=== PATIENT | male | born 1960 | race Caucasian/White ===

== ENCOUNTER 2020-12-14 07:51 | Outpatient (CLI) | payer OTHER, SELFPAY ==
[2020-12-14 08:17] LABS: Basophils Percent Auto 1.4 % (0.0-1.0); Eosinophils Absolute Auto 0.18 K/mm3 (0.02-0.50); Eosinophils Percent Auto 2.6 % (1.0-6.0); Hematocrit 59.7 % (40.0-54.0); Hemoglobin 20.9 g/dL (14.0-18.0); Immature Granulocyte Absolute 0.01 K/mm3 (0.00-0.00); Immature Granulocyte Percent A 0.1 % (0.0-0.0); Lymphocytes Absolute Auto 1.95 K/mm3 (1.10-4.50); Lymphocytes Percent Auto 28.1 % (18.0-42.0); Mean Corpuscular Hemoglobin 34.4 pg (27.0-31.0); Mean Corpuscular Volume 98.2 fL (78.0-102.0); Mean Platelet Volume 8.9 fl (8.7-11.0); Monocytes Absolute Auto 0.88 K/mm3 (0.10-0.90); Monocytes Percent Auto 12.7 % (2.0-11.0); Neutrophils Absolute Auto 3.8 K/mm3 (1.7-7.2); Neutrophils Percent Auto 55.1 % (50.0-70.0); Platelet Count Result 185 K/mm3 (150-420); Red Blood Count 6.08 M/mm3 (4.70-6.10); Red Cell Distribution Width 13.2 % (11.6-14.4); White Blood Count 6.9 K/mm3 (4.8-10.8)
[2020-12-14 08:37] LABS: Alanine Aminotransferase 45 U/L (16-63); Albumin Level 3.8 g/dL (3.4-5.0); Alkaline Phosphatase 71 U/L (46-116); Anion Gap 8 mmol/L (8-16); Aspartate Amino Transferase 28 U/L (15-37); Bilirubin,Total 1.6 mg/dL (0.00-1.00); Blood Urea Nitrogen 10 mg/dL (7-18); Calcium 9.5 mg/dL (8.5-10.1); Carbon Dioxide 32 mmol/L (21-32); Chloride 100 mmol/L (98-108); Cholesterol 208 mg/dL (0-200); Estimated Glomerular Filt Rate > 60; Glucose 119 mg/dL (70-99); HDL Direct 53 mg/dL (40-60); LDL Cholesterol Calculated 127 mg/dL (<130); Osmolality Calculated 290 mOsm/kg (285-295); Potassium 4.2 mmol/L (3.5-5.1); Sodium 140 mmol/L (136-145); Total Protein 7.5 g/dL (6.4-8.2); Triglycerides 142 mg/dL (0-150)
[2020-12-14 09:27] LABS: Thyroid Stimulating Hormone Reflex 3.24 u/IU/mL (0.36-3.74)
== END 2020-12-14 07:52 | disposition home or self-care (01) ==
PROVIDERS: PCP Family Medicine; Visit Provider Family Medicine
DX: I10 Essential (primary) hypertension (principal)
CPT/HCPCS: 36415; 80053; 80061; 84443; 85025

== ENCOUNTER 2022-09-30 08:39 | Outpatient (CLI) | payer OTHER, SELFPAY ==
[2022-09-30 08:50] LABS: Hematocrit 64.6 % (40.0-54.0); Hemoglobin 21.5 g/dL (14.0-18.0); Mean Corpuscular HGB Conc 33.3 g/dL (32.0-36.0); Mean Corpuscular Hemoglobin 31.3 pg (27.0-31.0); Mean Corpuscular Volume 94.2 fL (78.0-102.0); Mean Platelet Volume 8.7 fl (8.7-11.0); Platelet Count Result 177 K/mm3 (150-420); Red Blood Count 6.86 M/mm3 (4.70-6.10); White Blood Count 5.6 K/mm3 (4.8-10.8)
[2022-09-30 09:11] LABS: Alanine Aminotransferase 39 U/L (16-63); Albumin Level 3.7 g/dL (3.4-5.0); Alkaline Phosphatase 90 U/L (46-116); Anion Gap 7 mmol/L (8-16); Aspartate Amino Transferase 28 U/L (15-37); Bilirubin,Total 2.1 mg/dL (0.00-1.00); Blood Urea Nitrogen 10 mg/dL (7-18); Calcium 9.5 mg/dL (8.5-10.1); Carbon Dioxide 33 mmol/L (21-32); Chloride 101 mmol/L (98-108); Cholesterol 196 mg/dL (0-200); Estimated Glomerular Filt Rate 57; Glucose 136 mg/dL (70-99); HDL Direct 49 mg/dL (40-60); LDL Cholesterol Calculated 113 mg/dL (<130); Osmolality Calculated 293 mOsm/kg (285-295); Potassium 3.8 mmol/L (3.5-5.1); Sodium 141 mmol/L (136-145); Total Protein 7.8 g/dL (6.4-8.2); Triglycerides 170 mg/dL (0-150)
== END 2022-09-30 08:40 | disposition home or self-care (01) ==
LOC: CHSLAB 08:41
PROVIDERS: PCP Family Medicine; Visit Provider Family Medicine
DX: F33.1 Major depressive disorder, recurrent, moderate (principal)
CPT/HCPCS: 36415; 80053; 80061; 85027

== ENCOUNTER 2022-10-10 10:46 | Outpatient (CLI) | payer OTHER, SELFPAY ==
[2022-10-16 15:54] LABS: CALR Exon 9 Mutation Not Detected (Not Detected); CSF3R Exon 14/17 Mutation Not Detected (Not Detected); JAK2 Exon 12 Mutation Not Detected (Not Detected); JAK2 V617F Mutation Not Detected (Not Detected); MPL Exon 10 Mutation Not Detected (Not Detected); Specimen Source Blood
== END 2022-10-10 10:47 | disposition home or self-care (01) ==
LOC: ANHLAB 10:48
PROVIDERS: PCP Family Medicine; Visit Provider Internal Medicine Hematology & Oncology
DX: D45 Polycythemia vera (principal)
CPT/HCPCS: 36415; 81219; 81270; 81279; 81339; 81479

== ENCOUNTER 2023-02-10 08:05 | Emergency (ER) | payer OTHER, SELFPAY ==
--- NOTE | 2023-02-10 08:14 | ED.ABDPAIN ---
HPI - Abdominal Pain General Chief Complaint: Abdominal Pain Stated Complaint: Abdominal pain Time Seen by Provider: 02/10/23 08:25 Source: patient, family, RN notes reviewed and old records reviewed Mode of arrival: ambulatory Limitations: no limitations History of Present Illness HPI narrative: 62 year old male accompanied by presents to express care with complaints of upper epigastric pain which radiates thru to his back which has been constant since 0200 with some vomiting stated of what he describes as 'stomach acid with some some feelings of nausea. Patient denies any shortness of breath, left sided chest pain, any pain to his left arm, reports that his pain is 8/10 to upper epigastric area. Patient reports no difficulty with his urination reports that he had normal bowel movement yesterday. Patient does not have any right sided upper abdominal pain or any lower abdominal pain on palpation. Patient has history of hypertension, polycythemia vera for which he received phlebotomy about 1 week ago he reports, anxiety and depression. Patient report the he is non-smoker, does drink 3-4 beers daily and smokes marijuana daily usually at bedtime. MD elicited complaint: abdominal pain Pertinent past history: other (polycythemia Vera, ) Onset (ago): hour(s) (0200) Pain Consistency: constant Location: epigastric Severity: severe Pain scale (0-10): 8 Quality: sharp Radiation: back Treatments prior to arrival: other (none) Related Data Home Medications Medication Instructions Recorded Confirmed aspirin 81 mg tablet 81 mg PO DAILY 02/10/23 02/10/23 Allergies Allergy/AdvReac Type Severity Reaction Status Date / Time lisinopril Allergy Cough Verified 02/10/23 09:18 Review of Systems Review of Systems: CONSTITUTIONAL: Denies fever, chills, or sweats. ENT: Denies rhinorrhea, congestion, sore throat, or otalgia. CARDIOVASCULAR: Denies chest pain, palpitations, or edema. RESPIRATORY: Denies cough or dyspnea. GASTROINTESTINAL: Reports upper epigastric abdominal pain which he states feels like it goes through to his back, positive for nausea, vomiting no diarrhea. GENITOURINARY: Denies dysuria or hematuria. SKIN: Denies rash or itching. MUSCULOSKELETAL: Denies back pain, joint pain, or myalgia.No CVA tendrness NEUROLOGIC: Denies headache, numbness, or weakness. All systems reviewed & are unremarkable except as noted in HPI and below PMFSH Past Medical History Medical History (Updated 02/10/23 @ 08:45 by Tiffanie Clark NP) Anxiety state, unspecified Depression, major, recurrent, moderate Hypertension Polycythemia vera Surgical History Surgical History (Updated 02/10/23 @ 08:42 by Tiffanie Clark NP) No history of previous surgery Social History Social History Smoking status: Never smoker Alcohol intake: current Substance use type: marijuana Lack of Transportation: No Lack of Food: Never True Current Housing: I Have Housing Concerned About Future Housing: No Difficulty Paying Gas/Electric Bills: No Difficulty Paying for Meds: No Currently Unemployed: No Education: Trade/Vocational Certificate Difficulty w/ Childcare or Family Care: No Living arrangements: with family Occupation/Education: unemployed Spiritual care concerns: No Comments At time of signature, agree with nursing past medical, surgical, social and family history. There is no relevant family history pertinent to the presenting complaint Exam Narrative: GENERAL: Well-appearing, well-nourished, and in some acute distress related to epigastric abdominal pain. HEAD: Normocephalic, atraumatic. EYES: PERRLA, conjunctivae clear, and EOMI. ENT: Nares clear. Mucous membranes moist. Oropharynx without edema, erythema, or lesions. Tonsils not enlarged and without exudate. NECK: Supple. No lymphadenopathy CHEST: Speaks in full sentences. No respiratory dis
[2023-02-10 08:28] VITALS: BP 161/69; PULSE 61; RESP 16; TEMP 36.1; O2SAT 100
--- NOTE | 2023-02-10 08:28 | ECG_ITS ---
Measurements Intervals Hoffman Rate: 55 P: 37 NC: 155 QRS: -40 QRSD: 105 T: 7 QT: 431 QTc: 414 Interpretive Statements SINUS BRADYCARDIA WITH SINUS ARRHYTHMIA LEFT AXIS DEVIATION BORDERLINE ECG NO PREVIOUS ECG AVAILABLE FOR COMPARISON Electronically Signed On 02-10-2023 9:54:52 CDT by Iam Perry D.O.
== END 2023-02-10 08:34 | disposition short-term general hospital (02) ==
PROVIDERS: Emergency Provider Registered Nurse; PCP Family Medicine
DX: R10.13 Epigastric pain (principal); D45 Polycythemia vera; F12.90 Cannabis use, unspecified, uncomplicated; I10 Essential (primary) hypertension; F41.9 Anxiety disorder, unspecified; F33.8 Other recurrent depressive disorders
CPT/HCPCS: 93005; 99213; G0463

== ENCOUNTER 2023-02-10 09:04 | Observation (INO) | payer OTHER, SELFPAY ==
[2023-02-10] VITALS (47 sets, daily range): BP systolic 134–189; BP diastolic 70–137; PULSE 56–94; RESP 10–20; TEMP 36.5–37.3; O2SAT 91–100; BMI 27.8
--- NOTE | ~2023-02-10 | US_ITS ---
EXAMINATION: US abdomen limited DATE: 02/10/2023 13:18 INDICATION: Cholecystitis TECHNIQUE: Multiple grayscale and Doppler ultrasound images of the abdomen were obtained. COMPARISON: None FINDINGS: The pancreatic head and body are normal in appearance. The pancreatic tail is not visualized. Liver has normal echogenicity and contour, with a smooth surface. No liver lesion identified. No intrahepat ic biliary duct dilation suspected. Portal venous flow was seen in the hepatopetal, normal direction and has normal Doppler waveform. Gallbladder is dilated with a large echogenic and shadowing gallston e at the neck which measures up to 3.2 cm. There is no evident gallbladder wall thickening however a sonographic Brizuela sign was noted as positive by the disassembler. IMPRESSION: 1. Large gallstone at the neck of the dilated gallbladder with positive sonographic Brizuela's on consi stent with acute cholecystitis. There is however no evident gallbladder wall thickening or pericholec ystic inflammation stranding on the prior CT to more specifically suggest this and could consider fur ther evaluation with HIDA scan for more definitive determination as clinically indicated. Reviewed, dictated and finalized at location B. IMPRESSION: 1. Large gallstone at the neck of the dilated gallbladder with positive sonogra phic Brizuela's on consistent with acute cholecystitis. There is however no evide nt gallbladder wall thickening or pericholecystic inflammation stranding on the prior CT to more specifically suggest this and could consider further evaluati on with HIDA scan for more definitive determination as clinically indicated.
--- NOTE | ~2023-02-10 | CT_ITS ---
EXAMINATION: CT abdomen pelvis w con DATE: 02/10/2023 11:55 INDICATION: Epigastric abdominal pain. TECHNIQUE: Computed tomography (CT) of the abdomen and pelvis was performed with 100 mL Omnipaque 350 intravenous contrast. Automated exposure control and iterative reconstruction technique were employe d. The dose-length product was 820.03 mGy-cm. COMPARISON: None. FINDINGS: The visualized portions of the lung bases demonstrate subpleural bands in the lower lobes. There is a 4 mm nodule in right lower lobe, likely benign. No pleural effusion. The heart size is nor mal. No pericardial effusion. The liver and spleen are normal. The gallbladder is distended and conta ins gallstones. There is mild fat stranding adjacent to the gallbladder. The pancreas and adrenal gla nds are normal. There are cysts in the kidneys measuring up to 2.4 cm on the left. The prostate is mi ldly enlarged. There is a right inguinal hernia containing fat. There is diverticulosis of the colon without evidence of diverticulitis. The appendix is normal. There are no dilated loops of bowel. Ther e are no pathologically enlarged lymph nodes. There is no free intraperitoneal fluid. There is severe lower lumbar spondylosis. IMPRESSION: 1. Acute cholecystitis. Reviewed, dictated and finalized at location A. IMPRESSION: 1. Acute cholecystitis.
--- NOTE | 2023-02-10 09:22 | ED.ABDPAIN ---
HPI - Abdominal Pain General Chief Complaint: Abdominal Pain Stated Complaint: UPPER ABD PAIN SINCE 0200 Time Seen by Provider: 02/10/23 09:16 History of Present Illness HPI narrative: Pt presents from [facility] with epigastric abdominal pain since 0200 this morning. Pt says he has had this pain 6 or 8 times in the past and it always resolves after a few hours but today it did not resolve. Pt has history of Polycythemia Vera and had blood drawn off last week. Pt has no history of pancreatitis and has no prior abdominal surgeries. Pt does drink a few beers a day. Related Data Home Medications Medication Instructions Recorded Confirmed aspirin 81 mg tablet 81 mg PO DAILY 02/10/23 02/10/23 Allergies Allergy/AdvReac Type Severity Reaction Status Date / Time lisinopril Allergy Cough Verified 02/10/23 09:18 Review of Systems Review of Systems: All systems reviewed & are unremarkable except as noted in HPI and below PMFSH Past Medical History Medical History Anxiety state, unspecified Depression, major, recurrent, moderate Hypertension Polycythemia vera Surgical History Surgical History No history of previous surgery Family History Family History Mother Dementia Cancer Social History Social History (Updated 02/10/23 @ 15:16 by Evgeny Pepe NP) Social History: significant other .no children. unemployed Smoking status: Never smoker Alcohol intake: current Drinks per week: 20 Substance use: current Substance use type: marijuana Lack of Transportation: No Lack of Food: Never True Current Housing: I Have Housing Concerned About Future Housing: No Difficulty Paying Gas/Electric Bills: No Difficulty Paying for Meds: No Currently Unemployed: No Education: Trade/Vocational Certificate Difficulty w/ Childcare or Family Care: No Living arrangements: with family Occupation/Education: unemployed Spiritual care concerns: No Exam Const: General: healthy appearing Nutritional Appearance: well nourished Orientation/consciousness: patient oriented x3 Limitations: no limitations Resp: Effort & Inspection: normal respiratory effort Auscultation: clear to auscultation bilaterally Cardio: Rate: regular rate Rhythm: regular rhythm GI: GI Palp: Yes Soft to palpation and Yes Tenderness to palpation present (GI) (epigastum) Auscultation: normal bowel sounds Skin: General skin exam: normal color Rashes: no rashes Wounds: no wounds Neuro: General: patient oriented x3, moves all extremities, no meningeal signs and no focal motor deficits Speech: normal speech Extrem: General: normal to inspection and no clubbing, cyanosis or edema Psych: Mental Status: mental status grossly normal Affect: normal affect Attitude: cooperative Course Vital Signs Vital signs: Vital Signs Temperature 97.7 F 02/10/23 09:14 Pulse Rate 58 L 02/10/23 09:14 Respiratory Rate 18 02/10/23 09:14 Blood Pressure 166/87 H 02/10/23 09:14 Pulse Oximetry 100 02/10/23 09:14 Oxygen Delivery Room Air 02/10/23 09:14 Temperature 97.7 F 02/10/23 09:14 Pulse Rate 85 02/10/23 16:12 Respiratory Rate 18 02/10/23 16:12 Blood Pressure 161/99 H 02/10/23 16:12 Pulse Oximetry 100 02/10/23 16:12 Oxygen Delivery Room Air 02/10/23 09:14 MDM - Abdominal Pain MDM Narrative Medical decision making narrative: pt has epigastric pain could be gastritis but will check for cholecystitis and pancreatitis will treat with some pepcid. EKG from EC reviewed and sinus tate without st or t wave changes. will check trop but not STEMI on EKG. pt has cholecystic on ct with slight elevated wbc and total bili. dr evans saw pt in ED and recommended antibiotics and admission, OR tomorrow. d/w evgeny martin agrees to admit Lab Data
[2023-02-10] MEDS: MAG HYDROX/AL HYDROX/SIMETH 30 ML UDC PO (09:34)
[2023-02-10] MEDS: SODIUM CHLORIDE 0.9% IV 1,000 ML 999 ML IV CONT (09:34)
[2023-02-10] MEDS: LIDOCAINE HCL 2% VISC SOLN 15 ML UDC 20 ML PO (09:34)
[2023-02-10] MEDS: FAMOTIDINE 20 MG/2 ML VIAL IV PUSH (09:35)
[2023-02-10] MEDS: MORPHINE SULFATE (*CRX) 4 MG/ML INJ IV PUSH (09:35)
[2023-02-10 10:07] LABS: Basophils Absolute Auto 0.1 K/mm3 (0.0-0.1); Basophils Percent Auto 0.4 % (0.2-1.2); Hematocrit 49.9 % (42.0-52.0); Hemoglobin 16.7 g/dL (14.0-18.0); Immature Granulocyte Absolute 0.06 K/mm3 (0.00-0.031); Immature Granulocyte Percent A 0.4 % (0-0.5); Lymphocytes Absolute Auto 0.36 K/mm3 (0.9-3.2); Lymphocytes Percent Auto 2.2 % (18.3-44.2); Mean Corpuscular HGB Conc 33.5 g/dl (32-36); Mean Corpuscular Hemoglobin 30.9 pg (26-34); Mean Corpuscular Volume 92.2 fl (80-100); Monocytes Absolute Auto 0.8 K/mm3 (0.1-0.6); Monocytes Percent Auto 5.1 % (2.6-8.5); Neutrophils Absolute Auto 14.7 K/mm3 (1.3-6.7); Neutrophils Percent Auto 91.9 % (45.5-73.1); Platelet Count Result 281 k/mm3 (150-375); Red Blood Count 5.41 M/mm3 (4.6-6.20); Red Cell Distribution Width 12.2 % (11.5-14.5)
[2023-02-10 10:18] LABS: Alanine Aminotransferase 26 U/L (6-50); Albumin Level 4.6 g/dL (3.5-5.1); Alkaline Phosphatase 81 U/L (38-126); Anion Gap 8 mmol/L (8-16); Aspartate Amino Transferase 38 U/L (17-59); Bilirubin,Total 1.9 mg/dL (0.2-1.3); Blood Urea Nitrogen 13 mg/dL (9-20); Calcium 9.6 mg/dL (8.4-10.2); Carbon Dioxide 26 mmol/L (22-30); Chloride 102 mmol/L (98-107); Estimated CRCL calculation 88 ml/min; Estimated Glomerular Filt Rate > 60; Glucose 178 mg/dL (65-110); Lipase 127 U/L (23-300); Potassium 3.3 mmol/L (3.4-5.0); Sodium 136 mmol/L (137-145)
[2023-02-10 10:26] LABS: Prothrombin Time 13.2 Seconds (11.1-14.7)
[2023-02-10 10:27] LABS: Partial Thromboplastin Time 22.1 SECONDS (22.3-36.8)
[2023-02-10 10:30] LABS: Troponin I < 0.012 ng/mL (0.000-0.034)
[2023-02-10] MEDS: HYDROmorphone HCL INJ (*CRX) 1 MG/ML SYR 0.5 MG IV PUSH (11:26)
[2023-02-10] MEDS: PIPERACILLIN/TAZ 4.5G/NS 100ML 4.5 GM/100 ML BAG IVPB (15:03)
--- NOTE | 2023-02-10 15:04 | PM.CNGS ---
Assessment and Plan Assessment and plan (1) Cholecystitis: Code(s): K81.9 - Cholecystitis, unspecified Status: Acute Assessment and Plan: impacted stone at neck, IV abx, plan for urgent gayatri in am History of Present Illness Consult details Consult date: 02/10/23 Reason for consult: abdominal pain Requesting physician: Jennifer Irving III, DO Narrative: The patient is a 62-year-old male presenting to the emergency department complaining of severe right upper quadrant, epigastric abdominal pain. Patient reports that the pain started at 2 this morning and has progressively worsened. The patient reports the pain is sharp and stabbing with associated nausea, bloating. The patient reports he has not had any appetite since this episode started. Of note, the patient reports similar symptoms in the past 8-10 years, however nothing this severe or long-lasting. Workup in the emergency department, including imaging, is significant for acute cholecystitis, cholelithiasis. Review of Systems Review of Systems: All systems reviewed & are unremarkable except as noted in HPI and below Gastrointestinal: Gastrointestinal: Reports as per HPI, Reports abdominal pain, Reports bloating, Denies change in bowel habits, Reports early satiety, Reports dyspepsia, Reports heartburn, Reports nausea and Denies vomiting PMFSH Past Medical History Medical History Anxiety state, unspecified Depression, major, recurrent, moderate Hypertension Polycythemia vera Surgical History Surgical History No history of previous surgery Social History Social History Smoking status: Never smoker Alcohol intake: current Substance use type: marijuana Lack of Transportation: No Lack of Food: Never True Current Housing: I Have Housing Concerned About Future Housing: No Difficulty Paying Gas/Electric Bills: No Difficulty Paying for Meds: No Currently Unemployed: No Education: Trade/Vocational Certificate Difficulty w/ Childcare or Family Care: No Living arrangements: with family Occupation/Education: unemployed Spiritual care concerns: No Comments FH - no known biliary dz Meds Home Medications and Allergies Home Medications Medication Instructions Recorded Confirmed Type hydrochlorothiazide 12.5 mg tablet See Rx Instructions .Route 08/19/22 02/10/23 Rx .COMPLEX #90 tabs bupropion HCl 150 mg tablet,12 hr See Rx Instructions .Route 11/26/22 02/10/23 Rx sustained-release .COMPLEX #180 tabs aspirin 81 mg tablet 81 mg PO DAILY 02/10/23 02/10/23 History Allergies Allergy/AdvReac Type Severity Reaction Status Date / Time lisinopril Allergy Cough Verified 02/10/23 09:18 Vital Signs Vital Signs - 24 hr 02/10/23 09:14 02/10/23 09:15 02/10/23 09:17 Temperature 36.5 C Pulse Rate 58 L 59 L 61 Respiratory Rate 18 12 18 Blood Pressure 166/87 H 170/110 H Pulse Oximetry 100 99 98 Oxygen Delivery Room Air 02/10/23 09:31 02/10/23 09:45 02/10/23 09:46 Temperature Pulse Rate 58 L 68 66 Respiratory Rate 16 12 18 Blood Pressure 179/87 H 170/99 H Pulse Oximetry 99 99 99 Oxygen Delivery 02/10/23 10:00 02/10/23 10:01 02/10/23 10:15 Temperature Pulse Rate 61 56 L 57 L Respiratory Rate 18 18 10 L Blood Pressure 187/94 H Pulse Oximetry 100 99 99 Oxygen Delivery 02/10/23 10:16 02/10/23 10:31 02/10/23 10:46 Temperature Pulse Rate 62 64 59 L Respiratory Rate 16 16 16 Blood Pressure 189/96 H 187/99 H 189/91 H Pulse Oximetry 100 99 98 Oxygen Delivery 02/10/23 11:00 02/10/23 11:01 02/10/23 11:15 Temperature Pulse Rate 71 68 64 Respiratory Rate 15 18 18 Blood Pressure 181/94 H Pulse Oximetry 100 99 Oxygen Delivery 02/10/23 11:16 02/10/23 11:30 02/10/23 11:31 Temperature Pulse Rate 6
--- NOTE | 2023-02-10 15:13 | PM.IMHP ---
H&P: HPI History of Present Illness Date/Time: 02/10/23 15:13 Chief Complaint: Abdominal pain Narrative: This is a 62-year-old male patient who came to the emergency room with complaints of epigastric pain since 2:00 a.m. this morning. He stated that his pain was 6 or 7. The patient stated that he has had this pain in the past and would relieve itself but today after few hours it still remained. He does have a history of polycythemia vera and has had blood drawn off last week. His white count was noted to be 16.0. Neutrophil percentage 91.9. Sodium 136. Potassium 3.3. Blood sugar 178. Troponin negative. Abdominal CT was read as acute cholecystitis. Abdominal ultrasound was read as the following large gallstone at the neck of the dilated gallbladder with positive sonographic Brizuela's on consistent with acute cholecystitis. There is however no evident gallbladder wall thickening or pericholecystic inflammation stranding on the prior CT to more specifically suggest this and could consider further evaluation with HIDA scan for more definitive determination as clinically indicated. Surgery has been consulted. The patient was given morphine, Dilantin, Pepcid, IV fluids, Dilaudid, Zosyn and I gave him Apresoline for elevated blood pressure. The patient is being admitted to observation status on the date of service 02/10/2023. Review of Systems Review of Systems: All systems reviewed & are unremarkable except as noted in HPI and below Constitutional: Constitutional: Reports as per HPI and Reports no additional constitutional complaints Eyes: Eyes: Reports as per HPI and Reports no additional eye complaints ENT: Reports system reviewed and no additional complaints, except as documented and Reports Normal hearing present Cardiovascular: Cardiovascular: Reports no additional cardiovascular complaints Respiratory: Respiratory: Reports no additional respiratory complaints and Reports no additional respiratory complaints Gastrointestinal: Gastrointestinal: Reports as per HPI and Reports no additional gastrointestinal complaints Musculoskeletal: Musculoskeletal: Reports no additional musculoskeletal complaints Integumentary/Breasts: Skin/Breast: Reports system reviewed and no additional complaints, except as docu and Reports as per HPI Neurologic: Reports system reviewed and no additional complaints, except as documented, Reports as per HPI and Reports Normal hearing present Psychiatric: Psychiatric: Reports no additional psychiatric complaints and Reports as per HPI Endocrine: Endocrine: Reports no additional endocrine complaints Hematologic/Lymphatic: Hematologic/Lymphatic: Reports no additional hematologic/lymphatic complaints Allergic/Immunologic: Allergic/Immunologic: Reports no additional allergic/immunologic complaints [facility] Past Medical History Medical History Anxiety state, unspecified Depression, major, recurrent, moderate Hypertension Polycythemia vera Surgical History Surgical History No history of previous surgery Family History Family History Mother Dementia Cancer Social History Social History (Updated 02/10/23 @ 18:46 by Mary Pepe NP) Social History: He has a significant other. He has no children. He is currently unemployed. He is a lifelong nonsmoker. Smoking status: Never smoker Alcohol intake: current Drinks per week: 20 Substance use: current Substance use type: marijuana Lack of Transportation: No Lack of Food: Never True Current Housing: I Have Housing Concerned About Future Housing: No Difficulty Paying Gas/Electric Bills: No Difficulty Paying for Meds: No Currently Unemployed: No Education: Trade/Vocational Certificate Difficulty w/ Childcare or Family Care: No Living arrangements: with fam
[2023-02-10] MEDS: hydrALAZINE HCL 20 MG/ML VIAL 10 MG IV PUSH (16:02)
--- NOTE | 2023-02-10 16:32 | ADMGEN ---
This patient, Frandy Aguillon, was admitted to Medical Room 258-01. Patient/family oriented to hospital policies and general routines including ID bracelet, bed and alarms, visiting hours, pain management, procedures, bathroom and other care routines, personal items, smoking policy, room service/diet, and visiting hours. Information on how to activate the Rapid Response Team has been discussed. Patient/Family are encouraged to report perceived risks to care and to ask questions if they do not understand what they are told or what they should do.
[2023-02-10] MEDS: SODIUM CHLORIDE 0.9% IV 1,000 ML 100 ML IV CONT (19:38)
[2023-02-10] MEDS: buPROPion HCL SR (12 HR) 150 MG TAB BY MOUTH (19:41)
[2023-02-10] MEDS: PIPERACILLN/TAZ 3.375GM/NS50ML 3.375 GM/50 ML BAG IVPB (23:15)
[2023-02-11] VITALS (11 sets, daily range): BP systolic 127–151; BP diastolic 80–91; PULSE 77–86; RESP 14–20; TEMP 36.7–37; O2SAT 94–100
[2023-02-11] MEDS: PIPERACILLN/TAZ 3.375GM/NS50ML 3.375 GM/50 ML BAG IVPB (05:01)
[2023-02-11] MEDS: SODIUM CHLORIDE 0.9% IV 1,000 ML 100 ML IV CONT (05:02)
[2023-02-11 05:33] LABS: Basophils Absolute Auto 0.1 K/mm3 (0.0-0.1); Basophils Percent Auto 0.6 % (0.2-1.2); Eosinophils Percent Auto 0.1 % (0-4.4); Hematocrit 45.5 % (42.0-52.0); Hemoglobin 14.9 g/dL (14.0-18.0); Immature Granulocyte Absolute 0.05 K/mm3 (0.00-0.031); Immature Granulocyte Percent A 0.4 % (0-0.5); Lymphocytes Absolute Auto 1.19 K/mm3 (0.9-3.2); Lymphocytes Percent Auto 8.8 % (18.3-44.2); Mean Corpuscular HGB Conc 32.7 g/dl (32-36); Mean Corpuscular Hemoglobin 30.5 pg (26-34); Mean Platelet Volume 8.9 fl (7.4-10.4); Monocytes Absolute Auto 1.7 K/mm3 (0.1-0.6); Monocytes Percent Auto 12.5 % (2.6-8.5); Neutrophils Absolute Auto 10.5 K/mm3 (1.3-6.7); Neutrophils Percent Auto 77.6 % (45.5-73.1); Platelet Count Result 248 k/mm3 (150-375); Red Blood Count 4.89 M/mm3 (4.6-6.20); Red Cell Distribution Width 12.3 % (11.5-14.5); White Blood Count 13.5 K/mm3 (4.5-10.0)
[2023-02-11 05:42] LABS: Alanine Aminotransferase 22 U/L (6-50); Albumin Level 3.8 g/dL (3.5-5.1); Alkaline Phosphatase 58 U/L (38-126); Anion Gap 5 mmol/L (8-16); Aspartate Amino Transferase 34 U/L (17-59); Bilirubin,Total 2.7 mg/dL (0.2-1.3); Blood Urea Nitrogen 10 mg/dL (9-20); Calcium 8.7 mg/dL (8.4-10.2); Carbon Dioxide 25 mmol/L (22-30); Chloride 105 mmol/L (98-107); Estimated CRCL calculation 88 ml/min; Estimated Glomerular Filt Rate > 60; Glucose 120 mg/dL (65-110); Potassium 3.1 mmol/L (3.4-5.0); Sodium 135 mmol/L (137-145)
[2023-02-11 05:43] LABS: Lactic Acid Reflex 1.4 mmol/L (0.7-2.0)
--- NOTE | 2023-02-11 06:47 | WPDANESEPPF ---
Anes - Initial Pre Proc Eval Procedure: Operation Date: 02/11/23 07:30 Proposed Procedures p Laparoscopic Cholecystectomy - Zuleyma Harry MD Date/Time: 02/11/23 06:47 Surgeon: Iker Arrington MD Pre Op Diagnosis: Cholecystitis Patient Data Age: 62 Gender: M Height: 1.88 m Weight: 98.6 kg Last Vital Signs Temp 36.9 C 02/11/23 04:35 Pulse 81 02/11/23 04:35 Resp 20 02/11/23 04:35 BP 134/84 02/11/23 04:35 Pulse Ox 98 02/11/23 04:35 O2 Del Method Room Air 02/10/23 18:30 Allergies Allergy/AdvReac Type Severity Reaction Status Date / Time lisinopril Allergy Cough Verified 02/11/23 07:14 Home Medications Medication Instructions Recorded Confirmed Type bupropion HCl 150 mg tablet,12 hr See Rx Instructions .Route 11/26/22 02/10/23 Rx sustained-release .COMPLEX #180 tabs aspirin 81 mg tablet 81 mg PO DAILY 02/10/23 02/10/23 History hydrocodone 7.5 mg-acetaminophen 1 tablet PO Q6H PRN pain #30 tabs 02/11/23 Rx 325 mg tablet hydrochlorothiazide 12.5 mg tablet See Rx Instructions .Route 02/12/23 Rx .COMPLEX #90 tabs Laboratory Tests 02/10/23 02/11/23 10:00 04:57 WBC 16.0 H K/mm3 13.5 H K/mm3 (4.5-10.0) (4.5-10.0) RBC 5.41 M/mm3 4.89 M/mm3 (4.6-6.20) (4.6-6.20) Hgb 16.7 g/dL 14.9 g/dL (14.0-18.0) (14.0-18.0) Hct 49.9 % 45.5 % (42.0-52.0) (42.0-52.0) MCV 92.2 fl 93.0 fl (80-100) (80-100) MCH 30.9 pg 30.5 pg (26-34) (26-34) MCHC 33.5 g/dl 32.7 g/dl (32-36) (32-36) RDW 12.2 % 12.3 % (11.5-14.5) (11.5-14.5) Plt Count 281 k/mm3 248 k/mm3 (150-375) (150-375) MPV 9.0 fl 8.9 fl (7.4-10.4) (7.4-10.4) Immature Gran % (Auto) 0.4 % 0.4 % (0-0.5) (0-0.5) Neut % (Auto) 91.9 H % 77.6 H % (45.5-73.1) (45.5-73.1) Lymph % (Auto) 2.2 L % 8.8 L % (18.3-44.2) (18.3-44.2) Bledsoe % (Auto) 5.1 % 12.5 H % (2.6-8.5) (2.6-8.5) Eos % (Auto) 0.0 % 0.1 % (0-4.4) (0-4.4) Baso % (Auto) 0.4 % 0.6 % (0.2-1.2) (0.2-1.2) Lymph # (Auto) 0.36 L K/mm3 1.19 K/mm3 (0.9-3.2) (0.9-3.2) Bledsoe # (Auto) 0.8 H K/mm3 1.7 H K/mm3 (0.1-0.6) (0.1-0.6) Eos # (Auto) 0.0 K/mm3 0.0 K/mm3 (0-0.3) (0-0.3) Baso # (Auto) 0.1 K/mm3 0.1 K/mm3 (0.0-0.1) (0.0-0.1) Abs Immat Gran (auto) 0.06 H K/mm3 0.05 H K/mm3 (0.00-0.031) (0.00-0.031) Absolute Neuts (auto) 14.7 H K/mm3 10.5 H K/mm3 (1.3-6.7) (1.3-6.7) Absolute Nucleated RBC 0.0 K/mm3 0.0 K/mm3 (0.0-0.012) (0.0-0.012) Nucleated RBC % 0.0 % 0.0 % (0.0-0.2) (0.0-0.2) PT 13.2 Seconds (11.1-14.7) INR 1.0 APTT 22.1 L SECONDS (22.3-36.8) Sodium 136 L mmol/L 135 L mmol/L (137-145) (137-145) Potassium 3.3 L mmol/L 3.1 L mmol/L (3.4-5.0) (3.4-5.0) Chloride 102 mmol/L 105 mmol/L (98-107) (98-107) Carbon Dioxide 26 mmol/L 25 mmol/L (22-30) (22-30) Anion Gap 8 mmol/L 5 L mmol/L (8-16) (8-16) BUN 13 mg/dL 10 mg/dL (9-20) (9-20) Creatinine 0.90 mg/dL 0.90 mg/dL (0.7-1.3) (0.7-1.3) Estim Creat Clear Calc 88 ml/min 88 ml/min Estimated GFR > 60 > 60 (59 - ) (59 - ) Glucose 178 H mg/dL 120 H mg/dL (65-110) (65-110) Lactic Acid 1.4 mmol/L (0.7-2.0) Calcium 9.6 mg/dL 8.7 mg/dL (8.4-10.2) (8.4-10.2) Magnesium 2.0 mg/dL (1.6-2.3) Total Bilirubin 1.9 H mg/dL 2.7 H mg/dL (0.2-1.3) (0.2-1.3) AST 38 U/L 34 U/L (17-59) (17-59) ALT 26 U/L 22 U/L (6-50) (6-50) Alkaline Phosphatase 81 U/L 58 U/L (38-126) (38-126) Troponin I < 0.012 ng/mL (0.000-0.034) Total Protein 8.0 g/dL 7.0 g/dL (6.3-8.2) (6.3-8.2) Albumin 4.6 g/dL 3.8 g/dL (3.5-5.1) (3.5-5.1) Lipase 127 U/L (23-300) TSH (Reflex) 1.520 uIU/mL (0.465-4.68) Patient hx anesthesia problems: none Family hx anesthesia problems: none
[2023-02-11] MEDS: LACTATED RINGERS 1,000 ML 30 ML IV CONT ×2 (07:00→08:41)
--- NOTE | 2023-02-11 07:18 | WPDHPUPDATE1 ---
History and Physical Update Update Date/Time: 02/11/23 07:18 History and Physical has been reviewed, including an updated exam of the patient. There are NO changes in the patient's condition. Risks, benefits, and alternatives have been discussed and questions answered. Patient agrees to proceed with procedure.
[2023-02-11] MEDS: BUPIVACAINE/EPINEPHRINE 0.25% 50 ML VIAL 30 ML INFILTRATE (07:55)
--- NOTE | 2023-02-11 08:37 | W.PM.PROC2 ---
Procedure Note - Detailed Date of Procedure 02/11/23 Pre-op Diagnosis severe acute cholecystitis, cholelithiasis Post-op Diagnosis Same Procedure Performed Laparoscopic cholecystectomy Surgeon Zuleyma Harry MD Anesthesia General Indications 62-year-old male presented to the emergency department complaining of severe right upper quadrant, epigastric abdominal pain associated with nausea and vomiting. Workup including imaging significant for cholecystitis, cholelithiasis. Findings severe acute cholecystitis with cholelithiasis Description of Procedure The patient was taken to the operating room placed in the supine position. After adequate induction of general anesthesia, the patient was prepped and draped in normal sterile fashion. A time-out was then performed to verify the patient's identity as well as the procedure being performed. I then made a 5 mm incision in the infraumbilical region. Through this, a Veress needle was placed into the peritoneal cavity and CO2 gas was then insufflated. After adequate pneumoperitoneum was achieved, the Veress needle was removed and a 5 mm optiview trocar was placed through this incision under direct visualization. I then placed the laparoscope through this trocar site and under direct visualization placed a further 12 mm subxiphoid port as well as 2 additional 5 mm ports in the right upper abdomen. The gallbladder was then identified and was noted to be severely inflamed, distended, and full of gallstones. There was noted to be a large gallstone impacted at the neck the gallbladder. Given the amount of inflammation and evidence of necrosis in the gallbladder wall itself, decompression of the gallbladder was done with an ovarian needle. Very thick bilious material was drained as well as small stones and sludge. Once decompressed, I was able to place a grasper at the dome of the gallbladder and this was retracted anterior and cephalad up over the liver. A 2nd retractor was then placed at the infundibulum and retracted laterally, this allowed visualization of the triangle of Calot. I then was able to visualize the cystic duct in its entirety from its proximal insertion into the gallbladder, to its distal junction with the common hepatic/common bile duct junction. At this point, I carefully skeletonized the proximal cystic duct with the [place] dissector. I then clipped and transected the proximal cystic duct. Next I visualized the cystic artery. Again the artery was skeletonized, clipped, and transected. I then used the Bovie cautery to take down the peritoneal attachments of the gallbladder off the liver bed. This was difficult given the amount of inflammation in the posterior space. Once the gallbladder specimen was completely detached, an endo-pouch was placed through the 12 mm port site. I then placed the gallbladder specimen into the Endo pouch and removed the endo-pouch from the 12 mm port site. Of note the subxiphoid incision had to be extended to allow extraction of the specimen. The specimen will now be sent to pathology for further review. I then copiously irrigated the right upper quadrant. Some mild oozing was noted in the liver bed and this was controlled with the bovie cautery. Hemostasis was noted in the liver bed, the clips were noted to be in good position on both the cystic duct stump and the cystic artery stump. No other pathology was noted in the right upper quadrant. I then moved the laparoscope to the subxiphoid port. No iatrogenic injury or other pathology was noted in the lower abdomen. At this point, the abdomen was desufflated and all ports removed. I then closed the fascia of the subxiphoid port with a running 0 Ethibond suture. All port sites were then closed with 4.O Monocryl subcuticular sutures. Dermabond was placed on each incision. Please reflect that given the severe inflammation that this case took approximately double the time of a normal cholecystectomy. The patient kong
--- NOTE | 2023-02-11 10:00 | PC.NURSE ---
Returned from OR via stretcher. Significant other at bedside. Voiding without difficulty.
[2023-02-11] MEDS: buPROPion HCL SR (12 HR) 150 MG TAB BY MOUTH (10:16)
[2023-02-11] MEDS: hydroCHLOROthiazide 12.5 MG CAPSULE PO (10:16)
[2023-02-11] MEDS: POTASSIUM CHLORIDE 20 MEQ PACKET (FOR LIQUID) 40 MEQ PO ×2 (10:17→16:28)
--- NOTE | 2023-02-11 14:10 | PM.IMPN ---
Progress Note: A&P Assessment and Plan (1) Cholecystitis: Code(s): K81.9 - Cholecystitis, unspecified Status: Acute (2) Hypertension: Code(s): I10 - Essential (primary) hypertension Status: Chronic Plan 62 years old M presented with abdominal pain,?Abdominal CT was read as acute cholecystitis.? Abdominal ultrasound was read as the following large gallstone at the neck of the dilated gallbladder with positive sonographic Brizuela's on consistent with acute cholecystitis. Surgery was consulted, underwent laparoscopic cholecystitis. 1)Acute Cholecystitis: s/p Laparoscopic cholecystitis Post op care as per surgery Diet as tolerated pain control 2)DVT ppx:SCD 3)Code:Full 4)Dispo:pending improvement Time Spent With Patient Time with patient: 25 - 35 minutes Subjective Date/time seen: 02/11/23 14:10 Interval history: s/p laparoscopic cholecystectomy Review of Systems Review of Systems: All systems reviewed & are unremarkable except as noted in HPI and below (HPI) Exam Const: General: comfortable and no acute distress HENMT: Mouth: Yes moist mucous membranes Eyes: Sclera: sclerae normal Pupils: Equal, round and reactive pupils present Neck: Neck: supple Resp: Effort & Inspection: normal respiratory effort Auscultation: clear to auscultation bilaterally Cardio: Rate: regular rate Rhythm: regular rhythm GI: Inspection: distended GI Palp: Yes Soft to palpation Auscultation: normal bowel sounds Other: laparoscopic incisions from today's procedure Skin: General skin exam: normal color Neuro: Speech: normal speech Extrem: General: normal to inspection Psych: Mental Status: mental status grossly normal Objective Data Vital Signs Vital Signs: Vital Signs - 24 hr 02/10/23 14:13 02/10/23 15:09 02/10/23 16:12 Temperature Pulse Rate 74 78 85 Respiratory Rate 18 16 18 Blood Pressure 158/137 H 164/106 H 161/99 H Pulse Oximetry 98 97 100 Oxygen Delivery Oxygen Flow Rate 02/10/23 14:12 02/10/23 14:16 02/10/23 14:30 Temperature Pulse Rate 80 67 70 Respiratory Rate 18 18 13 Blood Pressure 158/137 H 177/92 H Pulse Oximetry 98 96 96 Oxygen Delivery Oxygen Flow Rate 02/10/23 14:31 02/10/23 14:46 02/10/23 15:01 Temperature Pulse Rate 61 62 79 Respiratory Rate 12 18 20 Blood Pressure 166/107 H 170/98 H 164/106 H Pulse Oximetry 97 96 97 Oxygen Delivery Oxygen Flow Rate 02/10/23 15:15 02/10/23 15:16 02/10/23 15:30 Temperature Pulse Rate 74 76 64 Respiratory Rate 13 14 17 Blood Pressure 134/113 H Pulse Oximetry 96 Oxygen Delivery Oxygen Flow Rate 02/10/23 15:31 02/10/23 15:45 02/10/23 15:46 Temperature Pulse Rate 63 63 62 Respiratory Rate 16 15 13 Blood Pressure 149/70 H 149/83 H Pulse Oximetry 95 96 95 Oxygen Delivery Oxygen Flow Rate 02/10/23 16:00 02/10/23 16:01 02/10/23 16:06 Temperature Pulse Rate 62 66 80 Respiratory Rate 14 18 18 Blood Pressure 167/89 H 161/99 H Pulse Oximetry 97 97 97 Oxygen Delivery Oxygen Flow Rate 02/10/23 18:30 02/10/23 20:05 02/11/23 04:35 Temperature 99.1 F 98.5 F Pulse Rate 94 81 Respiratory Rate 18 20 Blood Pressure 139/74 134/84 Pulse Oximetry 100 98 Oxygen Delivery Room Air Oxygen Flow Rate 02/11/23 07:09 02/11/23 08:41 02/11/23 08:55 Temperature 98.6 F 98.0 F Pulse Rate 84 86 81 Respiratory Rate 14 18 16 Blood Pressure 151/91 H 149/83 H 131/84 Pulse Oximetry 97 97 100 Oxygen Delivery Room Air Simple Face Mask Simple Face Mask Oxygen Flow Rate 8 8 02/11/23 09:00 02/11/23 09:10 02/11/23 09:20 Temperature Pulse Rate 80 82 77 Respiratory Rate 16 14 14 Blood Pressure 133/80 128/81 134/82 Pulse Oximetry 97 94 94 Oxygen Delivery Room Air Room Air Room Air Oxygen Flow Rate 02/11/23 09:30 02/11/23 09:40 02/11/23 09:50 Temperature 98.1 F Pulse Rate 80 79 79 Respiratory Rate 20 15 16 Blood
--- NOTE | 2023-02-11 14:28 | PM.DS ---
DS: Admitting Diagnosis Discharge Date 02/11/23 Admitting Diagnosis Acute Cholecystitis DS: Discharge Diagnosis Discharge Diagnosis (1) Cholecystitis: Code(s): K81.9 - Cholecystitis, unspecified Status: Acute DS: Summary Hospital Course Reason for hospitalization: Acute Cholecystitis Hospital Course: 62 years old M presented with abdominal pain,?Abdominal CT was read as acute cholecystitis.? Abdominal ultrasound was read as the following large gallstone at the neck of the dilated gallbladder with positive sonographic Brizuela's on consistent with acute cholecystitis. Surgery was consulted, underwent laparoscopic cholecystitis. Post operative stay was uneventful. Discharged home in stable condition. Status at Discharge Functional status at discharge: independent ambulation Overall status at discharge: patient is back to baseline Time Spent with Patient Time attestation: Total time spent providing and/or coordinating discharge services: Time spent: Greater than 30 minutes Exam Const: General: comfortable and no acute distress HENMT: Mouth: Yes moist mucous membranes Eyes: Sclera: sclerae normal Pupils: Equal, round and reactive pupils present Neck: Neck: supple Resp: Effort & Inspection: normal respiratory effort Auscultation: clear to auscultation bilaterally Cardio: Rate: regular rate Rhythm: regular rhythm GI: Inspection: distended GI Palp: Yes Soft to palpation Auscultation: normal bowel sounds Other: laparoscopic incisions from today's procedure Skin: General skin exam: normal color Neuro: Speech: normal speech Extrem: General: normal to inspection Psych: Mental Status: mental status grossly normal DS: Data Data Completed and Pending Pending studies at discharge: Pending at discharge 02/11/23 08:10 Surgical [PTH] Routine Labs on day of discharge: Labs from last 24 hours 02/11/23 04:57 WBC 13.5 H RBC 4.89 Hgb 14.9 Hct 45.5 MCV 93.0 MCH 30.5 MCHC 32.7 RDW 12.3 Plt Count 248 MPV 8.9 Immature Gran % (Auto) 0.4 Neut % (Auto) 77.6 H Lymph % (Auto) 8.8 L [place] % (Auto) 12.5 H Eos % (Auto) 0.1 Baso % (Auto) 0.6 Lymph # (Auto) 1.19 [place] # (Auto) 1.7 H Eos # (Auto) 0.0 Baso # (Auto) 0.1 Abs Immat Gran (auto) 0.05 H Absolute Neuts (auto) 10.5 H Absolute Nucleated RBC 0.0 Nucleated RBC % 0.0 Sodium 135 L Potassium 3.1 L Chloride 105 Carbon Dioxide 25 Anion Gap 5 L BUN 10 Creatinine 0.90 Estim Creat Clear Calc 88 Estimated GFR > 60 Glucose 120 H Lactic Acid 1.4 Calcium 8.7 Magnesium 2.0 Total Bilirubin 2.7 H AST 34 ALT 22 Alkaline Phosphatase 58 Total Protein 7.0 Albumin 3.8 TSH (Reflex) 1.520 Discharge Plan Discharge Attending physician on discharge: [place] Finn Discharging Clinician: [place] Finn Anticipated Discharge Date/Time: 02/11/23 17:00 Patient Disposition: Home, Self-Care Activity: may shower Diet: as tolerated Wound Care Instructions: incision open to air Discharge Instructions: DISCHARGE INSTRUCTION SHEET FOR HERNIA, GALLBLADDER AND APPENDIX SURGERIES DR. ALMENDAREZ PATIENT TO TAKE HOME 1. May shower in 24 hours, no soaking in bath x 2weeks. 2. Call office for: Wound increasingly painful or bleeding Vomiting Fever of greater than 101 degrees 3. If no bowel movement for three days, take 1 oz. (30 ml) Milk of Magnesia or MiraLax 17g 1 to 2 times daily. 4. No heavy lifting > 10-15 pounds x 6 weeks for hernia repairs and 2 weeks for laparoscopic cholecystectomy or appendectomy. 5. No driving for 3 days or while taking narcotic pain medications. 6. Ice to surgical site for 48 hours (30 min on, then 30 min off). 7. Up walking 10-30 minutes three times per day. 8. Resume previous home medications. 9. Follow-up 10-14 days in office for wound check or as previously scheduled. ([phone]) 10.
== END 2023-02-11 18:25 | disposition home or self-care (01) ==
LOC: ANHED 14:31 → ANH2MED 02-11 13:32
PROVIDERS: Nurse Practitioner; Surgery; Admitting Provider Internal Medicine; Emergency Provider Emergency Medicine; PCP Family Medicine; Visit Provider Internal Medicine
PROC: 0FT44ZZ Resection of Gallbladder, Percutaneous Endoscopic Approach (ICD-10-PCS; CPT 47562; principal; 2023-02-11 07:30)
DX: K80.10 Calculus of gallbladder with chronic cholecystitis without obstruction (principal); F33.1 Major depressive disorder, recurrent, moderate; F41.1 Generalized anxiety disorder; I10 Essential (primary) hypertension; D45 Polycythemia vera; R63.0 Anorexia; D72.829 Elevated white blood cell count, unspecified; R73.9 Hyperglycemia, unspecified; E87.6 Hypokalemia; Z68.27 Body mass index [BMI] 27.0-27.9, adult; F10.90 Alcohol use, unspecified, uncomplicated; F12.90 Cannabis use, unspecified, uncomplicated; Z79.82 Long term (current) use of aspirin; Z79.899 Other long term (current) drug therapy
CPT/HCPCS: 47562; 36415; 74177; 76705; 80053; 83605; 83690; 83735; 84443; 84484; 85025; 85610; 85730; 88304; 93005; 96361; 96365; 96366; 96375; 96376; 99285; A9270; G0378; G0379; J0360; J1100; J1170; J2250; J2270; J2405; J2543; J2704; J3010; J7030; J7120; Q9967